=== PATIENT | male | born 1950 | race Two or more races ===

== ENCOUNTER 2016-09-15 11:59 | Emergency (ER) | payer OTHER ==
[~2016-09-15] VITALS: Ht 167.6 cm; Wt 75.7 kg
[~2016-09-15 11:59] MED LIST: ACID1TAB4 PO; AMAN100T PO; AMLO5TAB4 PO; ATEN50TA PO; BISM525O70 PO; CALC-866 PO; CARB-94 PO; DIPH25CA83 PO; ENTA200T PO; LISI10TA5 PO; MAGN400O6 PO; PRAM0.5T3 PO; SIME40DR2 PO; TRAM50TA PO; [UNRECOGNIZED DRUG - OTHER]
[2016-09-15 12:16] LABS: BASOPHILS % (AUTO) 0.1 % (0.0-2.0); DIFF TOTAL % 100 %; EOSINOPHILS % (AUTO) 0.6 % (0.0-6.0); HEMATOCRIT 40 % (39-51); HEMOGLOBIN 13.6 g/dL (13.5-17.5); LYMPHOCYTES # (AUTO) 0.9 /CMM (0.8-4.8); LYMPHOCYTES % (AUTO) 14.7 % (20.0-44.0); MEAN CORPUSCULAR HEMOGLOBIN 31 PG (26.0-33.0); MEAN CORPUSCULAR HGB CONC 34 g/dl (31.0-36.0); MEAN CORPUSCULAR VOLUME 91 fL (80-96); MONOCYTES # (AUTO) 0.3 /CMM (0.1-1.30); NEUTROPHILS # (AUTO) 5.1 /CMM (1.8-8.9); NEUTROPHILS % (AUTO) 79.6 % (43.0-81.0); PLATELET COUNT (AUTO) 204 /CMM (150-450); RED BLOOD CELL COUNT(AUTO) 4.43 MIL/uL (4.5-6.0); WHITE BLOOD COUNT (AUTO) 6.4 K/uL (4.3-11.0)
[2016-09-15 12:25] LABS: ANION GAP 10 (5-14); CALCIUM, SERUM 8.8 mg/dL (8.5-10.1); CARBON DIOXIDE 30 mmol/L (21-32); CHLORIDE 110 mmol/L (98-107); GFR 75 mL/min (>60); GLUCOSE 94 mg/dL (74-106); POTASSIUM 3.6 mmol/L (3.5-5.1); SODIUM SERUM 146 mmol/L (136-145); UREA NITROGEN, BLOOD 21 mg/dL (7-18)
[2016-09-15 12:30] LABS: ALANINE AMINOTRANSFERASE 14 U/L (12-78); ALBUMIN 3.2 g/dL (3.4-5.0); ASPARTATE AMINOTRANSFERASE 30 U/L (15-37); BILIRUBIN,DIRECT 0.1 mg/dL (0.0-0.2); BILIRUBIN,TOTAL 0.4 mg/dL (0.2-1.0); INDIRECT BILIRUBIN 0.3 mg/dL (0.0-1.1); SALICYLATE 2.8 mg/dL (2.8-20.0); TOTAL PROTEIN, SERUM 6.9 g/dL (6.4-8.2)
[2016-09-15 12:31] LABS: ACETAMINOPHEN 0 ug/ml (10-30)
[2016-09-15 13:33] LABS: KETONES,URINE TRACE (NEGATIVE); LEUKOCYTE ESTERASE ,URINE NEGATIVE (NEGATIVE); PH,URINE 6.5 (5.0-8.0)
[2016-09-15 13:38] LABS: ADD UA MICROSCOPIC YES
[2016-09-15 13:39] LABS: ADD URINE CULTURE NO; RBC,URINE 0-2 /HPF (0-2); WBC,URINE 0-2 /HPF (0-3)
[2016-09-15 13:47] LABS: CANNABINOID, URINE NEGATIVE (NEGATIVE); PHENCYCLIDINE SCREEN,URINE NEGATIVE (NEGATIVE)
[2016-09-15] MEDS ORDERED: AMLODIPINE BESYLATE 5 MG TABLET PO ONE (14:30)
[2016-09-15] MEDS ORDERED: LISINOPRIL (10MG) 10 MG TABLET PO SCH (14:30)
[2016-09-15] MEDS ORDERED: AMLODIPINE BESYLATE 5 MG TABLET ONE (14:30)
[2016-09-15] MEDS ORDERED: LABETALOL HCL IV 100MG VIAL IV ONE (14:30)
[2016-09-15 14:47] VITALS: BP 178/71
== END 2016-09-15 14:49 | disposition home or self-care (01) ==
LOC: ER 12:01
DX: Z00.8 Encounter for other general examination (principal); F03.90 Unspecified dementia, unspecified severity, without behavioral disturbance, psychotic disturbance, mood disturbance, and anxiety; I10 Essential (primary) hypertension
CPT/HCPCS: 36415; 80048; 80076; 80305; 81001; 85025; 93005; 99285; A4606; G0480; G0481; G0482; 81000-TC; G6038-TC; G6039-TC; G6040-TC; Z7610